=== PATIENT | female | born 1975 | race Caucasian/White ===

== ENCOUNTER → 2016-08-04 | Outpatient (CLI) | payer OTHER | LOC: FIMAGING 16:09 | PROVIDERS: ATTEND Family Medicine | DX: Z12.31 Encounter for screening mammogram for malignant neoplasm of breast (principal); Z80.3 Family history of malignant neoplasm of breast | CPT/HCPCS: G0202 ==

== ENCOUNTER → 2017-08-05 | Outpatient (CLI) | payer OTHER | LOC: FIMAGING 08:00 | PROVIDERS: ATTEND Family Medicine | DX: Z12.31 Encounter for screening mammogram for malignant neoplasm of breast (principal); Z80.3 Family history of malignant neoplasm of breast ==

== ENCOUNTER 2018-03-09 17:30 | Emergency (ER) | payer OTHER ==
--- NOTE | 2018-03-09 17:44 | EDPHY ---
H & P Stated Complaint: rectal surg 03/04 now with ?fecalimpaction/pain Time Seen by Provider: 03/09/18 17:43 HPI/ROS: HPI: This is a 42-year-old female who presents with Chief Complaint: rectal surg 03/04 now with ?fecal impaction/pain Location: GI Duration: No bowel movement in several days Signs and Symptoms: no fever, no nausea, no vomiting, no hematemesis, no blood in stool, + abdominal bloating, no diarrhea, no back pain, no urinary symptoms, no vaginal bleeding/discharge, no indigestion, no chest pain, no shortness of breath Timing: Acute Severity: Moderate Context: Patient [place] [facility] [place] and perform hemorrhoidectomy. She has been taking stool softeners daily and several days after the surgery did not have a bowel movement. She gave herself an enema approximately 4 days ago and removed hard stool. For the last today she denied unable to have a bowel movement. She took 10 mL of magnesium citrate at 2:00 p.m. Without any relief. She complains of abdominal bloating and fullness. She denies fever, nausea, rectal bleeding, diarrhea, urinary symptoms. Patient denies actual abdominal pain. She is eating and drinking without difficulty. Modifying Factors: See above Comment: ROS: A comprehensive 10 system review of systems is otherwise negative aside from elements mentioned in the history of present illness. MEDICAL/SURGICAL/SOCIAL HISTORY: Medical history: Depression. Has an IUD. Surgical history: Rectal surgery, bilateral hip surgery Social history: Employed. Never smoked Family history noncontributory. CONSTITUTIONAL: Nontoxic-appearing middle-aged white female, awake and alert, no obvious distress HEENT: Atraumatic and normocephalic, PERRL, EOMI. Nares patent; no rhinorrhea; no nasal mucosal edema. Tympanic membranes clear. Oropharynx clear, no exudate and moist pink mucosa. Airway patent. No lymphadenopathy. No meningismus. Cardiovascular: Normal S1/S2, regular rate, regular rhythm, without murmur rub or gallop. PULMONARY/CHEST: Symmetrical and nontender. Clear to auscultation bilaterally. Good air movement. No accessory muscle usage. ABDOMEN: Soft, nondistended, nontender, no rebound, no guarding, no peritoneal signs, no masses or organomegaly. No CVAT. Bowel sounds heard x4 quadrants. RECTAL: Good sphincter tone, light brown stool in vault, no external hemorrhoids , no fissures, no palpable masses EXTREMITIES: 2/2 pulses, strength 5/5, no deformities, no clubbing, no cyanosis or edema. NEUROLOGICAL: no focal neuro deficits. GCS 15. SKIN: Warm and dry, no erythema. no rash. Good capillary refill. Source: Patient Exam Limitations: No limitations - Personal History LMP (Females 10-55): IUD In Place Current Tetanus Diphtheria and Acellular Pertussis (TDAP): Unsure - Medical/Surgical History Hx Asthma: No Hx Chronic Respiratory Disease: No Hx Diabetes: No Hx Cardiac Disease: No Hx Renal Disease: No Hx Cirrhosis: No Hx Alcoholism: No Hx HIV/AIDS: No Hx Splenectomy or Spleen Trauma: No Other PMH: rectal surg - Social History Smoking Status: Never smoked Constitutional: Initial Vital Signs Temperature (C) 36.8 C 03/09/18 17:34 Heart Rate 65 03/09/18 17:34 Respiratory Rate 17 03/09/18 17:34 Blood Pressure 106/78 03/09/18 17:34 O2 Sat (%) 97 03/09/18 17:34 O2 Delivery Mode Room Air Allergies/Adverse Reactions: No Known Allergies Allergy (Verified 03/09/18 17:34) Home Medications: Medication Instructions Recorded Wellbutrin 05/20/10 Percocet 5-325 mg Tablet 03/09/18 Medical Decision Making - Diagnostics Imaging Results: Imaging Impressions Abdomen X-Ray 03/09/18 17:51 Impression: Findings compatible with a fecal impaction and possible developing small bowel obstruction. Abdomen CT 03/09/18 18:53 Impression: Primary abnormality is stool impaction at the rectosigmoid junction , which in turn causes backup of contents in the rest of the large and small bowel. Findings and recommendations discussed with Deidra Galvan at 7:55 PM, 2017. Final report concurs with initial preliminary interpretation. ED Course/Re-evaluation: Vital signs reviewed and stable upon arrival. No systemic signs. Will start with two view abdominal x-ray to evaluate stool burden and location. Abdominal x-ray my read shows stool burden in the rectal vault; fleets enema ordered and minimal results Radiology voice concern for possibility of early small-bowel obstruction. Patient has bowel sounds and is passing gas. Long discussion with patient and she finally has agreed to IV, laboratory studies, CT abdomen and pelvis scan to evaluate for obstruction Given 1 L normal saline 1929: Labs reviewed. No signs of leukocytosis/anemia/platelet dysfunction/KAYKAY/ elevated LFTs/electrolyte imbalance/pancreatitis/. 1957: Called by radiologist, Dr. Conway, who reports that CT abdomen and pelvis scan shows moderate constipation with stool ball in the rectum but no signs of obstruction. Soap suds enema ordered. 500 cc with moderate stool evacuated Patient is extremely anxious about being discharged home. Discussed bowel regimen and gastroenterology follow-up. This patient was seen under the supervision of my secondary supervising physician. I evaluated care for this patient independently. Discussed this patient with Dr. Hawkins. Differential Diagnosis: Abdominal pain including but not limited to appendicitis, cholecystitis, gastritis and urinary tract infection. - Data Points Laboratory Results: Laboratory Results 03/09/18 19:05 03/09/18 19:05 03/09/18 03/09/18 03/09/18 19:05 19:05 19:05 WBC 11.85 10^3/uL H 10^3/uL (3.80-9.50) RBC 4.48 10^6/uL 10^6/uL (4.18-5.33) Hgb 14.6 g/dL g/dL (12.6-16.3) Hct 42.4 % % (38.0-47.0) MCV 94.6 fL fL (81.5-99.8) MCH 32.6 pg pg (27.9-34.1) MCHC 34.4 g/dL g/dL (32.4-36.7) RDW 12.3 % % (11.5-15.2) Plt Count 216 10^3/uL 10^3/uL (150-400) MPV 12.0 fL H fL (8.7-11.7) Neut % (Auto) 78.1 % H % (39.3-74.2) Lymph % (Auto) 14.3 % L % (15.0-45.0) [place] % (Auto) 6.2 % % (4.5-13.0) Eos % (Auto) 0.8 % % (0.6-7.6) Baso % (Auto) 0.3 % % (0.3-1.7) Nucleat RBC Rel Count 0.0 % % (0.0-0.2) Absolute Neuts (auto) 9.25 10^3/uL H 10^3/uL (1.70-6.50) Absolute Lymphs (auto) 1.70 10^3/uL 10^3/uL (1.00-3.00) Absolute Monos (auto) 0.74 10^3/uL 10^3/uL (0.30-0.80) Absolute Eos (auto) 0.09 10^3/uL 10^3/uL (0.03-0.40) Absolute Basos (auto) 0.04 10^3/uL 10^3/uL (0.02-0.10) Absolute Nucleated RBC 0.00 10^3/uL 10^3/uL (0-0.01) Immature Gran % 0.3 % % (0.0-1.1) Immature Gran # 0.03 10^3/uL 10^3/uL (0.00-0.10) Sodium 141 mEq/L mEq/L (135-145) Potassium 4.1 mEq/L mEq/L (3.3-5.0) Chloride 103 mEq/L mEq/L (97-110) Carbon Dioxide 25 mEq/l mEq/l (22-31) Anion Gap 13 mEq/L mEq/L (6-14) BUN 12 mg/dL mg/dL (7-23) Creatinine 0.9 mg/dL mg/dL (0.6-1.0) Estimated GFR > 60 Glucose 85 mg/dL mg/dL (70-100) Calcium 9.6 mg/dL mg/dL (8.5-10.4) Total Bilirubin 0.7 mg/dL mg/dL (0.1-1.4) Conjugated Bilirubin 0.2 mg/dL mg/dL (0.0-0.5) Unconjugated Bilirubin 0.5 mg/dL mg/dL (0.0-1.1) AST 42 IU/L IU/L (14-46) ALT 43 IU/L IU/L (9-52) Alkaline Phosphatase 65 IU/L IU/L (38-126) Total Protein 7.5 g/dL g/dL (6.3-8.2) Albumin 4.5 g/dL g/dL (3.5-5.0) Lipase 82 IU/L IU/L (23-300) Beta HCG, Qual NEGATIVE Medications Given: Discontinued Medications Sodium Chloride (Ns) 1,000 mls @ 0 mls/hr IV EDNOW ONE; Wide Open PRN Reason: Protocol Stop: 03/09/18 18:54 Last Admin: 03/09/18 19:09 Dose: 1,000 mls Departure - Departure Disposition: Home, Routine, Self-Care Clinical Impression: Constipation by delayed colonic transit Condition: Good Instructions: Polyethylene Glycol 3350 (By mouth), Senna (By mouth), Constipation (ED) Additional Instructions: Consume a minimum of 8-10 glasses of water or electrolyte fluid replacement drinks that include Gatorade, Powerade, Pedialyte. Eat a bland diet for the next 48 hours and then slowly advance as tolerated. Take MiraLax daily for constipation. Take Senna stool softeners two tablets once daily for constipation. It is okay to perform fleets enema daily for the next 3 days. Exercise regularly each day by walking. Apply heating pad to abdomen area as needed for the discomfort. Follow-up with primary care provider in the next 3-4 days if symptoms persist. Return to the Emergency Room if symptoms do not resolve in the next 48-72 hours , you spike a fever > 102 F, or experience intractable abdominal pain/nausea/ vomiting. Referrals: Paula Izaguirre MD [Primary Care Provider] - As per Instructions
[2018-03-09] MEDS ORDERED: NS 1,000 ML IV ONE (18:53)
[2018-03-09] MEDS ORDERED: IOPAMIDOL (ISOVUE-300) 100 ML BTL ONE (18:55)
[2018-03-09 19:21] LABS: PLATELET COUNT 216 10^3/uL (150-400)
[2018-03-09 22:31] VITALS: BP 115/64
== END 2018-03-09 22:30 | disposition home or self-care (01) ==
DX: K56.49 Other impaction of intestine (principal); E86.9 Volume depletion, unspecified
CPT/HCPCS: Q9967

== ENCOUNTER → 2018-07-12 | Outpatient (CLI) | payer OTHER | LOC: FIMAGING 18:31 | PROVIDERS: ATTEND Orthopaedic Surgery | DX: M16.0 Bilateral primary osteoarthritis of hip (principal); Z96.643 Presence of artificial hip joint, bilateral ==

== ENCOUNTER → 2018-08-09 | Outpatient (CLI) | payer OTHER | LOC: FIMAGING 08:36 | PROVIDERS: ATTEND Family Medicine | DX: Z12.31 Encounter for screening mammogram for malignant neoplasm of breast (principal); Z80.3 Family history of malignant neoplasm of breast ==